=== PATIENT | female | born 1965 | race African-American/Black ===

== ENCOUNTER 2018-11-10 13:25 | Emergency (ER) | payer MEDICAID ==
[~2018-11-10] VITALS: Ht 175.3 cm; Wt 111.7 kg
[2018-11-10 15:27] VITALS: BP 181/110
== END 2018-11-10 16:17 | disposition left against medical advice (07) ==
LOC: ER 13:25
DX: Z76.0 Encounter for issue of repeat prescription (principal); Z53.29 Procedure and treatment not carried out because of patient's decision for other reasons
CPT/HCPCS: 99281

== ENCOUNTER 2019-02-24 15:37 | Emergency (ER) | payer MEDICAID ==
[~2019-02-24] VITALS: Ht 176.5 cm; Wt 112.0 kg
[2019-02-24 19:28] VITALS: BP 179/92
== END 2019-02-24 19:31 | disposition home or self-care (01) ==
LOC: ER 15:37
DX: Z76.0 Encounter for issue of repeat prescription (principal); I10 Essential (primary) hypertension; F17.210 Nicotine dependence, cigarettes, uncomplicated
CPT/HCPCS: 99283